=== PATIENT | female | born 1950 | race African-American/Black ===

== ENCOUNTER 2021-01-06 15:05 | Emergency (ER) | payer MEDICARE ==
[~2021-01-06] VITALS: Ht 157.5 cm; Wt 78.0 kg
[2021-01-06] MEDS ORDERED: HYDRALAZINE HCL 25 MG TAB PO ONE ×2 (17:30→18:15)
[2021-01-06] MEDS ORDERED: HYDRALAZINE HCL 20 MG/ML VIAL IV STA (17:59)
[2021-01-06] MEDS ORDERED: LOSARTAN POTASSIUM 100 MG TAB PO ONE (18:15)
[2021-01-06] MEDS ORDERED: HYDROCHLOROTHIAZIDE 25 MG TAB PO ONE (18:15)
[2021-01-06 19:51] LABS: BASOPHILS # (AUTO) 0.1 (0.0-0.1); BASOPHILS % 0.6 % (0.0-1.0); EOSINOPHILS # (AUTO) 0.1 (0.0-0.4); EOSINOPHILS % 0.7 % (0.0-6.0); HEMATOCRIT 45.5 % (34.2-44.1); HEMOGLOBIN 14.5 g/dL (12.0-16.0); LYMPHOCYTES % 43.6 % (18.0-39.1); MEAN CORPUSCULAR HEMOGLOBIN 30.9 pg (28-32); MEAN CORPUSCULAR HGB CONC 31.9 g/dL (31-35); MONOCYTES # (AUTO) 0.5 (0.2-0.8); MONOCYTES % 5.3 % (4.4-11.3); NEUTROPHILS # (AUTO) 4.4 (2.1-6.9); NEUTROPHILS % 48.7 % (38.7-80.0); PLATELET COUNT 120 x10e3/uL (140-360); RED BLOOD COUNT 4.69 x10e6/uL (3.6-5.1); RED CELL DISTRIBUTION WIDTH 11.8 % (11.7-14.4)
[2021-01-06] MEDS ORDERED: VERAPAMIL HCL 120 MG TABSR PO ONE (20:00)
[2021-01-07 01:54] VITALS: BP 179/91
== END 2021-01-07 00:30 | disposition home or self-care (01) ==
LOC: ER 15:13
DX: R51.9 Headache, unspecified (principal); H43.399 Other vitreous opacities, unspecified eye; E11.40 Type 2 diabetes mellitus with diabetic neuropathy, unspecified; R94.31 Abnormal electrocardiogram [ECG] [EKG]; F17.210 Nicotine dependence, cigarettes, uncomplicated
CPT/HCPCS: 36415; 70450; 71045; 83880; 85025; 93005; 99284; J0360